=== PATIENT | male | born 1990 | race Caucasian/White ===

== ENCOUNTER → 2016-07-05 | Outpatient (CLI) | payer MEDICAID ==
--- NOTE | 2016-07-05 18:33 | DX ---
Lumbar Spine Series, 6 Views Total, at 4:28 PM CLINICAL HISTORY: 26-year-old male who hurt his back at the gym while lifting heavy weights. The sacha ent has had lumbago for 2 months. ICD 10 Diagnostic Code: M54.5. COMPARISON STUDY: None. FINDINGS: There are 5 nonrib-bearing lumbar-type vertebral bodies. 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 There is no evidence of instability with flexion or extension maneuvers. There are no pars interarticularis defects identified, and ther e is no facet malalignment. The interpediculate distances are normal. The sacroiliac joints appear no rmal, and the sacral arcuate lines are well-contoured. IMPRESSION: Normal exam. Should the patient develop radicular symptoms in addition to his lumbago, he may be a candidate for M R imaging.
== END ==
LOC: CIMAGING 16:15
PROVIDERS: ATTEND Family Medicine
DX: M54.5 Low back pain (principal)
CPT/HCPCS: 72114-PO

== ENCOUNTER 2018-05-29 10:16 | Emergency (ER) | payer BC, MEDICAID ==
[2018-05-29] MEDS ORDERED: NS 1,000 ML IV ONE (11:24)
[2018-05-29] MEDS ORDERED: ONDANSETRON 4 MG/2 ML VIAL IVP ONE (11:24)
[2018-05-29] MEDS ORDERED: fentaNYL 100 MCG/2 ML INJ IVP ONE (11:24)
--- NOTE | 2018-05-29 11:27 | EDPHY ---
H & P Smoking Status: Never smoked Time Seen by Provider: 05/29/18 10:55 HPI/ROS: CLINICAL IMPRESSION: Mononucleosis, left inguinal adenopathy, cough ASSESSMENT/PLAN: 28-year-old male presents to the emergency department with 1 week of left inguinal pain and swelling, 3 days of cough, subjective fever and weakness. Patient arrives afebrile with stable vital signs. He has significant left lower quadrant abdominal pain associated with palpable left inguinal adenopathy. CT abdomen pelvis without contrast shows swelling of the inguinal nodes with no obvious hernia, acute surgical intra-abdominal process, and a slightly enlarged spleen measuring 14.4. Given CT findings, mono screen and urine test were ordered. Patient does have mono, he has mild hematuria and significantly concentrated urine consistent with dehydration. No other significant lymphadenopathy. No testicular or scrotal swelling, and no evidence of UTI. Seen and examined by Dr. Portillo as well. Long discussion with patient regarding work modification to avoid any kind of potential intra- abdominal trauma or fall, avoidance of contact sports, and rest. Recommended follow-up with PCP. Pain medication prescribed. Warning signs return to ED sooner alignment discharge. DIFFERENTIAL DX: Abdominal pain includes but not limited to acute appendicitis, diverticulitis, cholecystitis, pancreatitis, SBO, gastroenteritis, constipation ED PROCEDURES: See lab and imaging results ED COURSE: CT discussed with Radiology. Patient has no inguinal hernia. He has swelling of the inguinal nodes with a slightly enlarged spleen measuring of 14.4. Hughes ordered and urine ordered. Patient appears very dehydrated and has 1+ hematuria. Case discussed with Dr. Portillo who will see and examine the patient as well. 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 This is associated with nausea, decreased appetite, subjective fever. Patient also developed a cough than the last 3 days and reports this is worsening his abdominal pain. He reports increased swelling to the left lower quadrant. No sore throat, ear pain, or sinus discomfort. He has been eating and drinking. No associated vomiting or change in bowel habits. He does report intermittent testicular and scrotal pain but no testicular scrotal swelling. No dysuria or flank pain. No concern for STDs. No purulent penile discharge. No history of abdominal wall trauma or prior surgery and he does not have any known inguinal hernias. PMH: None reported Pertinent Past Surgical History: None reported Family History: Noncontributory Social History: Works in the [employer]. Nonsmoker REVIEW OF SYSTEMS: All other systems negative Constitutional: No fever, no chills, appetite change. ENT: No sore throat, congestion, ear pain. Cardiovascular: No chest pain, no palpitations. Respiratory: No cough, no shortness of breath. Gastrointestinal: Positive abdominal pain, no vomiting, diarrhea. Genitourinary: No hematuria, dysuria, flank pain, positive left inguinal Musculoskeletal: No back pain, joint swelling, joint pain, myalgias. Skin: No rashes, color change. Neurological: No headache, dizziness, weakness. PHYSICAL EXAM: General Appearance: Alert, oriented, appropriate, cooperative, NAD, well hydrated, non-toxic appearing, VSS, no hypoxia. HEENT: TMs are clear bilaterally no perforation or FB, no injection, no evidence of serous or mucopurulent otitis. Oropharynx clear is no erythema or exudates, no tonsillar hypertrophy or asymmetry. Dentition without abnormality. Neck: Supple, nontender, no lymphadenopathy, no midline pain, FROM, no meningismus. Respiratory: There are no retractions, lungs are clear to auscultation. Cardiac: Regular rate and rhythm, no murmurs or gallops. Gastrointestinal: Abdomen is soft, significant tenderness to palpation of left inguinal region with notable left inguinal lymphadenopathy. Patient is uncircumcised. No testicular or scrotal swelling. No overlying abdominal wall erythema or cellulitic change. bowel sounds normal, no masses/hernia, no rigidity, guarding or focal peritoneal findings. Neurological: Alert and oriented x 3, CN 2-12 grossly intact, normal sensation and strength Skin: Warm, dry, no rashes, no nodules on palpation. Musculoskeletal: Extremities are symmetrical, full range of motion, no tenderness, deformity, swelling, or erythema. No supraclavicular, cervical, axillary lymphadenopathy Psychiatric: Patient is oriented X 3, there is no agitation. MEDICAL DECISION MAKING: Patient was seen independently. Secondary supervising physician at time of evaluation was Dr. Portillo . Diagnosis: Acute mononucleosis, left inguinal lymphadenopathy, cough. New, requires workup Summary: See Assessment and Plan for summary of ED visit Clinical lab tests: ordered / reviewed. Independent visualization of images, tracing, or specimens: Yes. Decision to obtain medical records or history from someone other than the patient: Patient's significant other Discussed patient with another provider: Dr. Portillo, radiology Patient Progress: Stable. (Rufus Morton) Constitutional: Initial Vital Signs Temperature (C) 36.5 C 05/29/18 10:20 Heart Rate 63 05/29/18 10:20 Respiratory Rate 18 05/29/18 10:20 Blood Pressure 144/89 H 05/29/18 10:20 O2 Sat (%) 99 05/29/18 10:20 O2 Delivery Mode Room Air Allergies/Adverse Reactions: acetaminophen [From Vicodin] Allergy (Verified 05/31/18 19:38) hydrocodone [From Vicodin] Allergy (Verified 05/31/18 19:38) Home Medications: Medication Instructions Recorded Xanax 05/29/18 oxyCODONE/APAP 5/325 [Percocet 1 - 2 tab PO Q4-6PRN PRN #15 tab 05/29/18 5/325] Ondansetron Odt [Zofran Odt 4 mg 4 mg PO Q4 PRN #20 tab 05/31/18 (RX)] morphINE IR [morphINE IR 15 mg (*)] 15 mg PO Q3-4PRN PRN #10 tab 05/31/18 MDM/Departure - MDM Medications Given: Discontinued Medications Fentanyl (Sublimaze) 100 mcg IVP EDNOW ONE Stop: 05/29/18 11:25 Last Admin: 05/29/18 11:45 Dose: 100 mcg Hydromorphone HCl (Dilaudid) 0.5 mg IVP EDNOW ONE Stop: 05/29/18 12:38 Last Admin: 05/29/18 12:41 Dose: 0.5 mg Sodium Chloride (Ns) 1,000 mls @ 0 mls/hr IV EDNOW ONE; Wide Open PRN Reason: Protocol Stop: 05/29/18 11:25 Last Admin: 05/29/18 11:45 Dose: 1,000 mls Ondansetron HCl (Zofran) 4 mg IVP EDNOW ONE Stop: 05/29/18 11:25 Last Admin: 05/29/18 11:45 Dose: 4 mg ED Course/Re-evaluation: I also saw this patient in the emergency department. I reviewed the history fever and cough. I reviewed the history of increased pain in the left groin. Patient tells me he has had mono previously. The exam shows mild erythema in his throat. Mild anterior cervical adenopathy. His lungs are clear. He does have slight nonproductive cough. Abdominal exam is significant for an enlarged tender lymph node in the left inguinal area. Slight adenopathy on the right. Penis is uncircumcised. Testicles descended and nontender. I suspect that this is likely viral syndrome. (Braxton Portillo) - Depart Disposition: Home, Routine, Self-Care Clinical Impression: Inguinal lymphadenopathy, Acute viral syndrome Condition: Fair Instructions: Lymphadenopathy (ED) Additional Instructions: DISCHARGE INSTRUCTIONS FROM YOUR DOCTOR Thank you for visiting our emergency department today. Please keep in mind that discharge from the emergency department does not mean that there is nothing wrong - it simply means that we have not identified an emergency condition that requires further evaluation or treatment in the hospital. You should always plan to follow up with primary care for re-evaluation of your condition in the next 2-3 days. If you have been referred to a specialist, please call as soon as possible (today or tomorrow) to schedule your follow up appointment at the appropriate time. The CT scan of her abdomen revealed swelling of the inguinal loads and a slightly enlarged spleen but otherwise no acute surgical abnormality. Labs were reassuring, no elevation infection fighting count, normal electrolytes, no evidence of urinary tract infection although you have significantly concentrated urine and we strongly recommend drinking more water. You do have mononucleosis. Given that you have a mildly enlarged spleen, we strongly recommend avoidance of any contact sports or activities where you could sustained trauma to your abdomen until you are cleared by primary care provider. It is very important that you follow up with primary care in the next 24-48 hours. We also gave you a referral to infectious disease given the swollen lymph nodes. Please use ibuprofen and pain medication was prescribed to use if needed. Do not drive or drink alcohol while taking narcotic pain medication. Please be aware, narcotics can cause constipation, lethargy, and increase your risk of falling. Do not take Tylenol at the same time as Vicodin or Percocet. Return to the emergency department immediately for worsening pain , fevers greater than 100.4, nausea or vomiting, testicular or scrotal swelling , increased abdominal swelling, or any other concerns People present with illnesses and injuries in different ways, and it is always possible that we have missed something. You may always return for re-evaluation if symptoms worsen or if they are not improving or if you develop new/different symptoms. Again, thank you for choosing our emergency department. We hope that you feel better. Stand Alone Forms: Work Limited Duty Prescriptions: oxyCODONE/APAP 5/325 [Percocet 5/325] 1 - 2 tab PO Q4-6PRN PRN #15 tab PRN Reason: Pain, Breakthrough Referrals: Jesus Wilkerson MD [Primary Care Provider] - As per Instructions Megan Robles MD [Medical Doctor] - As per Instructions
[2018-05-29] MEDS ORDERED: IOPAMIDOL (ISOVUE-300) 100 ML BTL ONE (12:10)
[2018-05-29 12:14] LABS: PLATELET COUNT 218 10^3/uL (150-400)
[2018-05-29] MEDS ORDERED: HYDROmorphONE/DILAUDID 2 MG/ML INJ IVP ONE (12:37)
[2018-05-29] MEDS ORDERED: HYDROmorphONE/DILAUDID 1 MG/ML INJ ONE (12:39)
[2018-05-29 15:25] VITALS: BP 147/90
== END 2018-05-29 15:24 | disposition home or self-care (01) ==
DX: B27.99 Infectious mononucleosis, unspecified with other complication (principal); R59.0 Localized enlarged lymph nodes; E86.9 Volume depletion, unspecified
CPT/HCPCS: 82435-PO; 82565-PO; 82947-PO; 84132-PO; 84295-PO; 84520-PO; 85014-PO; 96374; J1170; J2405; J3010; Q9967

== ENCOUNTER 2018-05-31 19:35 | Emergency (ER) | payer BC ==
[2018-05-31] MEDS ORDERED: NS 1,000 ML IV ONE (19:51)
[2018-05-31] MEDS ORDERED: HYDROmorphONE/DILAUDID 2 MG/ML INJ IVP ONE (19:51)
[2018-05-31] MEDS ORDERED: ONDANSETRON 4 MG/2 ML VIAL IVP ONE (19:51)
--- NOTE | 2018-05-31 19:54 | EDPHY ---
H & P Time Seen by Provider: 05/31/18 19:43 HPI/ROS: CHIEF COMPLAINT: Fatigue, ongoing abdominal pain HISTORY OF PRESENT ILLNESS: The patient is a 28-year-old man who was seen here on with abdominal pain and had a CT scan that revealed enlarged lymph nodes and spleen. He then had a mono test that was positive. No sore throat. No fever. He is brought back today by his parents stating that he continues to have abdominal pain and is very fatigued and he does not think that he can go to work. No fevers. No vomiting. He has not had a bowel movement. He has been using Percocet at home. Parents state he has not been eating or drinking much. He has not had any abdominal trauma. Severity: Moderate Modifying factors: None REVIEW OF SYSTEMS: Constitutional: denies: chills, fever, recent illness, recent injury EENTM: denies: blurred vision, double vision, nose congestion Respiratory: denies: cough, shortness of breath Cardiac: denies: chest pain, irregular heart rate, lightheadedness, palpitations Gastrointestinal/Abdominal: denies: abdominal pain, diarrhea, nausea, vomiting, blood streaked stools Genitourinary: denies: dysuria, frequency, hematuria, pain Musculoskeletal: denies: joint pain, muscle pain Skin: denies: lesions, rash, jaundice, bruising Neurological: denies: headache, numbness, paresthesia, tingling, dizziness, weakness Hematologic/Lymphatic: denies: blood clots, easy bleeding, easy bruising Immunologic/allergic: denies: HIV/AIDS, transplant 10 systems reviewed and negative except as noted EXAM: GENERAL: Well-appearing, well-nourished and in no acute distress. HEAD: Atraumatic, normocephalic. EYES: Pupils equal round and reactive to light, extraocular movements intact, sclera anicteric, conjunctiva are normal. ENT: TMs normal, nares patent, oropharynx clear without exudates. Moist mucous membranes. NECK: Normal range of motion, supple without lymphadenopathy or JVD. LUNGS: Breath sounds clear to auscultation bilaterally and equal. No wheezes rales or rhonchi. HEART: Regular rate and rhythm without murmurs, rubs or gallops. ABDOMEN: Diffuse painful abdomen, enlarged spleen with mild tenderness. BACK: No CVA tenderness, no spinal tenderness, step-offs or deformities EXTREMITIES: Normal range of motion, no pitting or edema. No clubbing or cyanosis. NEUROLOGICAL: Cranial nerves II through XII grossly intact. Normal speech, normal gait. 5/5 strength, normal movement in all extremities, normal sensation , normal reflexes PSYCH: Normal mood, normal affect. SKIN: Warm, dry, normal turgor, no visible rashes or lesions. Source: Patient, Family Exam Limitations: No limitations - Medical/Surgical History Hx Asthma: No Hx Chronic Respiratory Disease: No Hx Diabetes: No Hx Cardiac Disease: No Hx Renal Disease: No Hx Cirrhosis: No Hx Alcoholism: No Hx HIV/AIDS: No Hx Splenectomy or Spleen Trauma: No Other PMH: anxiety - Family History Significant Family History: No pertinent family hx - Social History Smoking Status: Never smoked Alcohol Use: Sober Drug Use: None Constitutional: Initial Vital Signs Temperature (C) 37.3 C 05/31/18 19:38 Heart Rate 80 05/31/18 19:38 Respiratory Rate 16 05/31/18 19:38 Blood Pressure 150/81 H 05/31/18 19:38 O2 Sat (%) 94 05/31/18 19:38 O2 Delivery Mode Room Air Allergies/Adverse Reactions: acetaminophen [From Vicodin] Allergy (Verified 05/31/18 19:38) hydrocodone [From Vicodin] Allergy (Verified 05/31/18 19:38) Home Medications: Medication Instructions Recorded Xanax 05/29/18 oxyCODONE/APAP 5/325 [Percocet 1 - 2 tab PO Q4-6PRN PRN #15 tab 05/29/18 5/325] Ondansetron Odt [Zofran Odt 4 mg 4 mg PO Q4 PRN #20 tab 05/31/18 (RX)] morphINE IR [morphINE IR 15 mg (*)] 15 mg PO Q3-4PRN PRN #10 tab 05/31/18 Medical Decision Making - Diagnostics Imaging Results: Imaging Impressions Abdomen Ultrasound 05/31/18 19:51 Impression: 1. Mildly enlarged spleen. 2. Prominent left extrarenal pelvis without hydronephrosis. Findings discussed with SYED HEALY 05/31/2018 at 21:02. 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 Patient asked repeatedly for stronger pain medication. He states that the Percocet is not working. I encouraged Tylenol and ibuprofen. I told him I would give him a small prescription for morphine but would encourage him to stay away from it as much as possible. Also that would be constipating. We discussed the fact that his symptoms will last for several weeks. He is asking for a note for work. Differential Diagnosis: Partial list of the Differential diagnosis considered include but were not limited to; mononucleosis, influenza, viral syndrome and although unlikely based on the history and physical exam, I also considered splenic rupture, sepsis. I discussed these differential diagnoses and the plan with the patient as well as the usual and expected course. The patient understands that the diagnosis is provisional and that in medicine we are not always correct and that further workup is often warranted. Usual and customary warnings were given. All of the patient's questions were answered. The patient was instructed to return to the emergency department should the symptoms at all worsen or return, otherwise to followup with the physician as we discussed. - Data Points Laboratory Results: Laboratory Results 05/31/18 19:50 05/31/18 19:50 05/31/18 05/31/18 19:50 19:50 WBC 9.38 10^3/uL 10^3/uL (3.80-9.50) RBC 5.10 10^6/uL 10^6/uL (4.40-6.38) Hgb 16.3 g/dL g/dL (13.7-17.5) Hct 48.1 % % (40.0-51.0) MCV 94.3 fL fL (81.5-99.8) MCH 32.0 pg pg (27.9-34.1) MCHC 33.9 g/dL g/dL (32.4-36.7) RDW 12.8 % % (11.5-15.2) Plt Count 287 10^3/uL 10^3/uL (150-400) MPV 9.7 fL fL (8.7-11.7) Neut % (Auto) 65.7 % % (39.3-74.2) Lymph % (Auto) 22.4 % % (15.0-45.0) Bradley % (Auto) 7.7 % % (4.5-13.0) Eos % (Auto) 3.0 % % (0.6-7.6) Baso % (Auto) 0.6 % % (0.3-1.7) Nucleat RBC Rel Count 0.0 % % (0.0-0.2) Absolute Neuts (auto) 6.16 10^3/uL 10^3/uL (1.70-6.50) Absolute Lymphs (auto) 2.10 10^3/uL 10^3/uL (1.00-3.00) Absolute Monos (auto) 0.72 10^3/uL 10^3/uL (0.30-0.80) Absolute Eos (auto) 0.28 10^3/uL 10^3/uL (0.03-0.40) Absolute Basos (auto) 0.06 10^3/uL 10^3/uL (0.02-0.10) Absolute Nucleated RBC 0.00 10^3/uL 10^3/uL (0-0.01) Immature Gran % 0.6 % % (0.0-1.1) Immature Gran # 0.06 10^3/uL 10^3/uL (0.00-0.10) Sodium 140 mEq/L mEq/L (135-145) Potassium 4.1 mEq/L mEq/L (3.5-5.2) Chloride 107 mEq/L mEq/L (97-110) Carbon Dioxide 24 mEq/l mEq/l (22-31) Anion Gap 9 mEq/L mEq/L (6-14) BUN 15 mg/dL mg/dL (7-23) Creatinine 1.0 mg/dL mg/dL (0.7-1.3) Estimated GFR > 60 Glucose 84 mg/dL mg/dL (70-100) Calcium 9.1 mg/dL mg/dL (8.5-10.4) Total Bilirubin 0.3 mg/dL mg/dL (0.1-1.4) Conjugated Bilirubin 0.2 mg/dL mg/dL (0.0-0.5) Unconjugated Bilirubin 0.1 mg/dL mg/dL (0.0-1.1) AST 30 IU/L IU/L (17-59) ALT 38 IU/L IU/L (21-72) Alkaline Phosphatase 69 IU/L IU/L (38-126) Total Protein 7.6 g/dL g/dL (6.3-8.2) Albumin 4.2 g/dL g/dL (3.5-5.0) Lipase 48 IU/L IU/L (23-300) Medications Given: Discontinued Medications Hydromorphone HCl (Dilaudid) 1 mg IVP EDNOW ONE Stop: 05/31/18 19:52 Last Admin: 05/31/18 20:01 Dose: 1 mg Sodium Chloride (Ns) 1,000 mls @ 0 mls/hr IV EDNOW ONE; Wide Open PRN Reason: Protocol Stop: 05/31/18 19:52 Last Admin: 05/31/18 20:01 Dose: 1,000 mls Ketorolac Tromethamine (Toradol) 30 mg IVP EDNOW ONE Stop: 05/31/18 20:57 Last Admin: 05/31/18 20:58 Dose: 30 mg Ondansetron HCl (Zofran) 4 mg IVP EDNOW ONE Stop: 05/31/18 19:52 Last Admin: 05/31/18 20:01 Dose: 4 mg Departure - Departure Disposition: Home, Routine, Self-Care Clinical Impression: Splenomegaly Mononucleosis Qualifiers: Infectious mononucleosis etiology: other organism Infectious mononucleosis complication: other complications Qualified Code(s): B27.89 - Other infectious mononucleosis with other complication Condition: Fair Instructions: Mononucleosis (ED) Referrals: Jesus Wilkerson MD [Primary Care Provider] - As per Instructions Stand Alone Forms: Work Excuse Prescriptions: morphINE IR [morphINE IR 15 mg (*)] 15 mg PO Q3-4PRN PRN #10 tab PRN Reason: Pain, Severe Ondansetron Odt [Zofran Odt 4 mg (RX)] 4 mg PO Q4 PRN #20 tab PRN Reason: Nausea & Vomiting
[2018-05-31] MEDS ORDERED: HYDROmorphONE/DILAUDID 1 MG/ML INJ ONE (19:58)
[2018-05-31 20:00] LABS: PLATELET COUNT 287 10^3/uL (150-400)
[2018-05-31] MEDS ORDERED: KETOROLAC 30 MG/1 ML SDV IVP ONE (20:56)
[2018-05-31 21:29] VITALS: BP 144/87
== END 2018-05-31 21:29 | disposition home or self-care (01) ==
DX: B27.89 Other infectious mononucleosis with other complication (principal); R16.1 Splenomegaly, not elsewhere classified; E86.9 Volume depletion, unspecified; F41.9 Anxiety disorder, unspecified
CPT/HCPCS: 96374; J1170; J1885; J2405